=== PATIENT | female | born 2000 | race Caucasian/White ===

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

== ENCOUNTER 2022-04-04 19:27 | Emergency (ER) | payer OTHER, MEDICAID, SELFPAY ==
[2022-04-04 19:32] VITALS: BP 130/84; PULSE 105; RESP 18; TEMP 36.7; O2SAT 99; BMI 24.7
--- NOTE | 2022-04-04 19:38 | XRR_ITS ---
PROCEDURE INFORMATION: Exam: XR Right Foot Exam date and time: 04/04/2022 7:40 PM Age: 22 years old Clinical indication: Pain; Foot; Right; Additional info: Fall, pain TECHNIQUE: Imaging protocol: Radiologic exam of the Right foot. Views: 3 or more views. COMPARISON: No relevant prior studies available. FINDINGS: Bones/joints: Normal. Soft tissues: Normal. XR/XR foot RT min 3V* [id number] IMPRESSION: No acute findings.
--- NOTE | 2022-04-04 19:39 | ED_ITS ---
HPI - Extremity Injury (Lower) General: Chief Complaint: Extremity Injury, Lower Stated Complaint: Rt Foot Injury Time Seen by Provider: 04/04/22 19:38 Source: patient Mode of arrival: wheelchair Limitations: no limitations History of Present Illness: Patient is a nice 22-year-old female presents to ED today for evaluation of a right foot injury. Patient states she dove off the couch and attempts to stop her 10-week-old puppy from peeing on the floor when she landed wrong on her right foot (states it got caught underneath her and she sat on it wrong). Patient has noticed pain and swelling to the lateral aspect of her right foot. She has no other injuries or complaints at this time. MD complaint: foot injury Onset (ago): hour(s) Injury: Right: foot Place: home Severity: moderate Relieving factors: immobilization Exacerbating factors: movement Associated symptoms: Reports inability to bear weight Other symptoms: none Review of Systems Musc: Reports: extremity swelling (lateral R foot); Denies: extremity pain, joint pain or joint swelling Neuro: Denies: numbness in extremities or sensory changes PFSH ED PFSH: Medical History Acne Endometriosis History of cleft lip History of cleft palate Hypothyroidism Polycystic ovarian disease Family History Mother Eliel's disease Other Arrhythmia CHF (congestive heart failure) Hypertension Social History Smoking and tobacco status: never smoked Alcohol intake: never Female Reproductive History: Date of last menstrual period: 03/09/22 Physical Exam Const: COMMON NORMALS: no acute distress, average body habitus, no limitations, healthy appearing, alert and well nourished Extremity: GENERAL: Yes normal exam except as noted RIGHT LOWER EXTREMITY: Yes foot & digits Right foot and digits: Yes inspection (swelling/ecchymosis over R base 5th metatarsal), Yes palpation (TTP over R lateral foot) and Yes neurovascular exam (normal) Neuro: COMMON NORMALS: moves all extremities, no focal motor deficits and no sensory deficits noted SENSORIUM/ORIENTATION: Yes alert Skin: TRAUMA: no lacerations or abrasions Course Vital Signs: Vital signs: Vital Signs Temperature 98.1 F 04/04/22 19:32 Pulse Rate 105 H 04/04/22 19:32 Respiratory Rate 18 04/04/22 19:32 Blood Pressure 130/84 04/04/22 19:32 Pulse Oximetry 99 04/04/22 19:32 Oxygen Delivery Me thod 04/04/22 19:32 MDM - Extremity Injury (Lower) Medical Decision Making XR neg. YULISSA wrap/crutches/weightbearing as tolerated/RICE therapy. Follow-up with PCP in 1 to 2 weeks for continued pain. Lab Data Radiology Impressions Foot X-Ray 04/04/22 19:38 IMPRESSION: No acute findings. Discharge Plan Discharge Patient Disposition: Home Clinical Impression: Right foot sprain Qualifiers: Encounter type: initial encounter Qualified Code(s): S93.601A - Unspecified sprain of right foot, initial encounter Condition: Stable Prescriptions: No Action Amzeeq 4 % foam 1 applic topical .twice daily adapalene 0.1 % gel 1 applic topical DAILY Qty: 45 5RF Rx Instructions: Apply to clean, dry face nightly adapalene 0.3 % gel 1 applic topical .night Qty: 45 2RF Rx Instructions: Apply to clean dry face at night Discharge Orders: Discharge ED (Routine); Ordered 04/04/22 Ordered By: Hanna Chatman Referrals: Trinity Colon MD [Primary Care Provider] - Patient Instructions: Foot Sprain (ED), RICE Therapy Coding Level of Care Code ED Industrial Pipefitter Journeyman for Chg Fwd Exam Expanded Problem Focused
== END 2022-04-04 19:51 | disposition home or self-care (01) ==
PROVIDERS: Emergency Provider Physician Assistant; PCP Family Medicine
DX: S93.601A Unspecified sprain of right foot, initial encounter (principal); X50.1XXA Overexertion from prolonged static or awkward postures, initial encounter
CPT/HCPCS: 73630; 99283; E0114

== ENCOUNTER 2023-01-11 13:06 | Outpatient (CLI) | payer OTHER, MEDICAID, SELFPAY ==
--- NOTE | 2023-01-11 13:16 | US_ITS ---
WS: [id number] ULTRASOUND SOFT TISSUES LEFT neck. HISTORY: LOCALIZED SWELLING,MASS,LUMP UNSPECIFIED COMPARISON: None available. TECHNIQUE: 2-D and color Doppler imaging is submitted. Palpable area along the LEFT neck corresponds to a small lymph node in the region of the parotid glan d measuring 7 x 7 x 4 mm. The adjacent parotid gland is normal. IMPRESSION: Benign lymph node LEFT cervical chain.
== END 2023-01-11 13:07 | disposition home or self-care (01) ==
LOC: RAD 13:07
PROVIDERS: PCP Family Medicine; Visit Provider Nurse Practitioner Family
DX: R22.0 Localized swelling, mass and lump, head (principal); R20.8 Other disturbances of skin sensation
CPT/HCPCS: 76536

== ENCOUNTER 2023-08-07 23:24 | Emergency (ER) | payer OTHER, SELFPAY ==
[2023-08-07 23:33] VITALS: BP 133/77; PULSE 84; RESP 15; TEMP 36.6; O2SAT 100; BMI 23.8
--- NOTE | 2023-08-07 23:43 | XRR_ITS ---
PROCEDURE INFORMATION: Exam: XR Chest Exam date and time: 08/07/2023 11:47 PM Age: 23 years old Clinical indication: Other: Syncope TECHNIQUE: Imaging protocol: Radiologic exam of the chest. Views: 1 view. COMPARISON: CR XR chest 1V portable [id number] 03/17/2020 9:09 PM FINDINGS: Lungs: Unremarkable. No consolidation. Pleural spaces: Unremarkable. No pleural effusion. No pneumothorax. Heart/Mediastinum: Unremarkable. No cardiomegaly. Bones/joints: Unremarkable. XR/XR chest 1V portable [id number] IMPRESSION: No acute findings.
--- NOTE | 2023-08-07 23:44 | ECG_ITS ---
[facility] Test Date: 2023-08-07 Pat Name: Brittney Blankenship Department: Room: Gender: Female Boiler Out: : 2000 Requested By: Bud Klein Order Number: [id number] Olivia MD: Doc Frias M.D. Measurements Intervals [place] Rate: 75 P: 50 NM: 155 QRS: 80 QRSD: 88 T: 43 QT: 351 QTc: 393 Interpretive Statements SINUS RHYTHM WITH MARKED SINUS ARRHYTHMIA No previous ECG available for comparison Electronically Signed On 08-08-2023 17:48:09 CDT by Doc Frias M.D. [id number]
[2023-08-07 23:48] LABS: Basophils % 0.4 %; Eosinophils # 0.1 10^3/uL (0.0-0.8); Eosinophils % 1.7 %; Hematocrit 39.2 % (36-47); Lymphocytes # 3.4 10^3/uL (0.8-4.8); Lymphocytes % 45.1 %; Mean Corpuscular HGB Conc 31.6 g/dL (30-55); Mean Corpuscular Hemoglobin 22.4 pg (27-33); Mean Corpuscular Volume 70.8 fl (85-98); Mean Platelet Volume 11.7 fL (7.4-10.4); Monocytes # 0.6 10^3/uL (0.2-0.9); Monocytes % 7.9 %; Neutrophils # 3.32 10^3/uL (1.8-7.7); Neutrophils % 44.6 %; Nucleated Red Blood Cells % 0 %; Platelet Count 235 10^3/cmm (157-399); Red Blood Count 5.54 10^6/uL (3.85-5.65); Red Cell Distribution Width 14.6 % (12.1-15.1); White Blood Count 7.45 10^3/uL (3.29-11.43)
[2023-08-08] VITALS (7 sets, daily range): BP systolic 113–148; BP diastolic 73–93; PULSE 63–117; RESP 15–24; O2SAT 90–98
[2023-08-08 00:15] LABS: Anion Gap 14.8 (5-19); Blood Urea Nitrogen 13 mg/dL (6-20); Carbon Dioxide 23 mmol/L (22-29); Chloride 103 mmol/L (98-107); Creatinine Clr Calc Pharmacy 83.0366; Glomerular Filtration Rate 78.3 mL/min (90-130); Glucose 95 mg/dL (65-115); Magnesium 2.1 mg/dL (1.7-2.3); NT Pro B Type Natriuretic Pept < 36 pg/mL (0-125); Osmolality Calculated 284 mOsm/kg (285-295); Potassium 3.8 mmol/L (3.5-5.1); Sodium 137 mmol/L (136-145)
[2023-08-08] MEDS: ketorolac 30 mg/mL INJ 15 MG IVP (00:24)
[2023-08-08] MEDS: sodium chloride 0.9% 1,000 ML 999 ML IV (00:25)
--- NOTE | 2023-08-08 00:42 | ED_ITS ---
HPI - Syncope 2 General: Chief Complaint: Syncope Stated Complaint: SOB\Passing Out Time Seen by Provider: 08/07/23 23:26 Source: patient Mode of arrival: ambulatory Limitations: no limitations History of Present Illness: Patient reports she has POTS and usually has some pressure in her chest and dizziness before the episodes and some type of prodrome. Today she was not having any of that she had multiple episodes today more so than her normal. She has a headache but no chest pain and, been having some body aches. She is currently on her period. She has not any medications for POTS. Review of Systems 2 General: Reports: 10 or more systems reviewed and unremarkable except in HPI and below PFSH ED 2 PFSH: Medical History Endometriosis Acne Hypothyroidism Polycystic ovarian disease History of cleft lip History of cleft palate Family History Mother Eliel's disease Other Arrhythmia Congestive heart failure (CHF) Hypertension Social History Smoking and tobacco/nicotine status: never used tobacco/nicotine Alcohol intake: never Substance/Drug Use: never Physical Exam 2 Const: COMMON NORMALS: no acute distress, average body habitus, patient oriented x3, healthy appearing, alert and well nourished GENERAL APPEARANCE: well kempt and well developed HENMT: COMMON NORMALS: normocephalic, atraumatic, external ears normal and moist oral mucous membranes HEAD & SCALP: normocephalic and atraumatic E XTERNAL EAR: Yes external ears normal Eye: COMMON NORMALS: Equal, round and reactive pupils present, EOMs intact bilaterally and conjunctivae normal CONJUNCTIVA: Yes conjunctivae normal P UPIL: Yes Equal, round and reactive pupils present Neck/C-Spine: COMMON NORMALS: full ROM, no lymphadenopathy and supple Chest: CHEST: Yes Symmetrical chest wall rise and No Surgical scars present (Chest) Resp: COMMON NORMALS: normal respiratory effort, No retractions, No use of accessory muscles and clear to auscultation bilaterally AUSCULTATION: clear to auscultation bilaterally Cardio: COMMON NORMALS: regular rate, regular rhythm, S1 normal heart sound present, S2 normal heart sound present (prominent S2), No gallops present (Cardio), No clicks present (Cardio), No murmurs present (Cardio) and No rub (Cardio) RATE: regular rate RHYTHM: regular rhythm HEART SOUNDS: S1 normal heart sound present, S2 normal heart sound present (prominent S2) and no murmurs PERIPHERAL PULSES: other (Radial pulses 2+ and symmetric) GI: COMMON NORMALS: Soft to palpation, non-tender and no masses INSPECTION: No abdominal distension PALPATION: Yes Soft to palpation, No Guarding due to palpation present (GI) and No Rebound tenderness present : COMMON NORMALS: Yes no CVA tenderness BLADDER/KIDNEY EXAM: Yes no CVA tenderness Back/Pelvis: COMMON NORMALS: no CVA tenderness Extremity: COMMON NORMALS: normal to inspection, full ROM, capillary refill normal and no clubbing, cyanosis or edema Neuro: COMMON NORMALS: patient oriented x3 SENSORIUM/ORIENTATION: Yes alert Psych: APPEARANCE: Yes well kempt Skin: COMMON NORMALS: no rashes or lesions noted, no wounds, turgor normal and no jaundice GENERAL SKIN EXAM: no rashes or lesions noted and turgor normal Course 2 Vital Signs: Vital signs: Vital Signs Temperature 97.8 F 08/07/23 23:33 Pulse Rate 117 H 08/08/23 02:01 Respiratory Rate 15 08/08/23 01:30 Blood Pressure 148/93 08/08/23 02:01 Pulse Oximetry 90 08/08/23 01:30 Oxygen Delivery Me thod Room Air 08/08/23 01:00 MDM - Syncope Medical Decision Making EKG with sinus arrhythmia interpreted at 2350. No ST elevations or prolonged intervals. Patient reports improved after liter of fluids. Not on any medications for POTS. Able to tolerate orthostatic vital check at this time. Offered additional liter versus discharge. Patient reports that she feels ready go home. Differential Diagnosis Likely syncope due to orthostatic hypotension, vasovagal syncope and dehydration; Unlikely complete atrioventricular block, subarachnoid hemorrhage or pulmonary embolism Medical Records I reviewed the patient's medical records. Lab Data I reviewed the patient's lab results. 08/07/23 23:41 08/07/23 23:41 Radiology Impressions Chest X-Ray 08/07/23 23:43 IMPRESSION: No acute findings. Laboratory Results WBC 7.45 10^3/uL (3.29-11.43) 08/07/23 23:41 RBC 5.54 10^6/uL (3.85-5.65) 08/07/23 23:41 Hgb 12.40 g/dL (11.27-16.99) 08/07/23 23:41 Hct 39.2 % (36-47) 08/07/23 23:41 MCV 70.8 fl (85-98) L 08/07/23 23:41 MCH 22.4 pg (27-33) L 08/07/23 23:41 MCHC 31.6 g/dL (30-55) 08/07/23 23:41 RDW 14.6 % (12.1-15.1) 08/07/23 23:41 Plt Count 235 10^3/cmm (157-399) 08/07/23 23:41 MPV 11.7 fL (7.4-10.4) H 08/07/23 23:41 Neut % (Auto) 44.6 % 08/07/23 23:41 Lymph % (Auto) 45.1 % 08/07/23 23:41 [place] % (Auto) 7.9 % 08/07/23 23:41 Eos % (Auto) 1.7 % 08/07/23 23:41 Baso % (Auto) 0.4 % 08/07/23 23:41 Neut # (Auto) 3.32 10^3/uL (1.8-7.7) 08/07/23 23:41 Lymph # (Auto) 3.4 10^3/uL (0.8-4.8) 08/07/23 23:41 [place] # (Auto) 0.6 10^3/uL (0.2-0.9) 08/07/23 23:41 Eos # (Auto) 0.1 10^3/uL (0.0-0.8) 08/07/23 23:41 Baso # (Auto) 0.0 10^3/uL (0.0-0.1) 08/07/23 23:41 Nucleated RBC % (auto) 0 % 08/07/23 23:41 Nucleated RBCs # 0.0 /100WBC 08/07/23 23:41 Sodium 137 mmol/L (136-145) 08/07/23 23:41 Potassium 3.8 mmol/L (3.5-5.1) 08/07/23 23:41 Chloride 103 mmol/L (98-107) 08/07/23 23:41 Carbon Dioxide 23 mmol/L (22-29) 08/07/23 23:41 Anion Gap 14.8 (5-19) 08/07/23 23:41 BUN 13 mg/dL (6-20) 08/07/23 23:41 Creatinine 0.9 mg/dL (0.5-0.9) 08/07/23 23:41 GFR Calculation 78.3 mL/min (90-130) L 08/07/23 23:41 Glucose 95 mg/dL (65-115) 08/07/23 23:41 POC Glucose 86 mg/dL (70-110) 08/08/23 00:52 Calculated Osmolality 284 mOsm/kg (285-295) L 08/07/23 23:41 Calcium 10.0 mg/dL (8.5-10.5) 08/07/23 23:41 Magnesium 2.1 mg/dL (1.7-2.3) 08/07/23 23:41 NT-Pro-B Natriuret Pep < 36 pg/mL (0-125) 08/07/23 23:41 HCG, Qual Negative (Negative) 08/08/23 01:02 Urine Color Colorless (Yellow) 08/08/23 01:02 Urine Appearance Clear (CLEAR) 08/08/23 01:02 Urine pH 6 (5-7) 08/08/23 01:02 Ur Specific [place] 1.010 (1.005-1.030) 08/08/23 01:02 Urine Protein Neg (Negative) 08/08/23 01:02 Urine Glucose (UA) Norm (Normal) 08/08/23 01:02 Urine Ketones Negative (Negative) 08/08/23 01:02 Urine Blood Neg (Negative) 08/08/23 01:02 Urine Nitrate Negative (Negative) 08/08/23 01:02 Urine Bilirubin Neg (Negative) 08/08/23 01:02 Urine Urobilinogen Neg mg/dL (Negative) 08/08/23 01:02 Ur Leukocyte Esterase Negative (Negative) 08/08/23 01:02 All radiology interpretation(s) finalized by discharge ED provider radiology interpretation(s): X-ray personally reviewed and shows no cardiomegaly, no acute findings. Discharge Plan Discharge Patient Disposition: Home Clinical Impression: POTS (postural orthostatic tachycardia syndrome) Syncope Qualifiers: Syncope type: unspecified Qualified Code(s): R55 - Syncope and collapse Condition: Stable Prescriptions: No Action Amzeeq 4 % foam 1 applic topical .twice daily adapalene 0.1 % gel 1 applic topical DAILY Qty: 45 5RF Rx Instructions: Apply to clean, dry face nightly adapalene 0.3 % gel 1 applic topical .night Qty: 45 2RF Rx Instructions: Apply to clean dry face at night Discharge Orders: Discharge ED (Routine); Ordered 08/08/23 Ordered By: Bud Klein Referrals: Trinity Colon MD [Primary Care Provider] - Discharge Diet: Usual diet Discharge Activity: Resume usual activity Patient Instructions: Syncope (ED) Coding Level of Care Code ED Bait Packer for Heather Guardado
[2023-08-08 00:56] LABS: Glucose Point of Care 86 mg/dL (70-110)
[2023-08-08 01:06] LABS: Add Urine Microscopic? NO; Charge for UA Resulting for Rev
[2023-08-08 01:35] LABS: HCG Qualitative Urine. Negative (Negative); Urine Appearance Clear (CLEAR); Urine Color Colorless (Yellow)
[2023-08-08 01:36] LABS: Bilirubin Urine Neg (Negative); Blood Urine Neg (Negative); Glucose Urine UA Norm (Normal); Ketones Urine Negative (Negative); Leukocyte Esterase Urine Negative (Negative); Nitrate Urine Negative (Negative); Protein Urine Neg (Negative); Urobilinogen Urine Neg (Negative); pH Urine 6 (5-7)
== END 2023-08-08 03:41 | disposition home or self-care (01) ==
PROVIDERS: Emergency Provider Emergency Medicine; PCP Family Medicine
DX: G90.A Postural orthostatic tachycardia syndrome [POTS] (principal); R55 Syncope and collapse
CPT/HCPCS: 36416; 71045; 80048; 81003; 81025; 82962; 83735; 83880; 85025; 93005; 96361; 96374; 99285; J1885; J7030

== ENCOUNTER 2024-11-20 14:47 | Outpatient (CLI) | payer SELFPAY ==
[2024-11-20 16:29] LABS: Hematocrit 38.2 % (36-47); Hemoglobin 12.10 g/dL (11.27-16.99); Mean Corpuscular HGB Conc 31.7 g/dL (30-55); Mean Corpuscular Hemoglobin 23.3 pg (27-33); Mean Corpuscular Volume 73.6 fl (85-98); Nucleated Red Blood Cells % 0 %; Platelet Count 218 10^3/cmm (157-399); Red Blood Count 5.19 10^6/uL (3.85-5.65); White Blood Count 7.65 10^3/uL (3.29-11.43)
[2024-11-20 17:30] LABS: Alanine Aminotransferase 10 U/L (0-33); Albumin Level 4.3 g/dL (3.5-5.2); Alkaline Phosphatase 52 U/L (35-105); Anion Gap 9.9 (5-19); Aspartate Amino Transferase 15 U/L (0-32); Blood Urea Nitrogen 15 mg/dL (6-20); Calcium 8.9 mg/dL (8.5-10.5); Carbon Dioxide 28 mmol/L (22-29); Chloride 105 mmol/L (98-107); Globulin 2.7 g/dL (1.3-4.6); Glucose 68 mg/dL (65-115); Iron 50 ug/dL (37-145); Osmolality Calculated 287 mOsm/kg (285-295); Potassium 3.9 mmol/L (3.5-5.1); Sodium 139 mmol/L (136-145); Thyroid Stimulating Hormone 2.33 uIU/mL (0.27-4.20); Total Iron Binding Capacity 339 mcg/dl; Total Protein 7.0 g/dL (6.6-8.7); Unsaturated Iron Binding 289 ug/dL (112-347); Vitamin B12 553 pg/mL (232-1245)
== END 2024-11-20 14:48 | disposition home or self-care (01) ==
PROVIDERS: PCP Family Medicine; Visit Provider Internal Medicine
DX: Z01.89 Encounter for other specified special examinations (principal); R53.82 Chronic fatigue, unspecified
CPT/HCPCS: 80053; 82607; 83540; 83550; 84443; 85025